=== PATIENT | female | born 2000 | race African-American/Black ===

== ENCOUNTER 2022-04-04 12:30 | Emergency (ER) | payer OTHER, SELFPAY ==
[2022-04-04 13:08] VITALS: BP 108/81; PULSE 71; RESP 20; TEMP 37.2; O2SAT 100
--- NOTE | 2022-04-04 13:42 | ED.GENADULT ---
HPI - General Adult General Chief complaint: Upper Respiratory Infection Stated complaint: sore throat, drainage History of Present Illness HPI narrative: 21 y/o female. PMHx None reported. Presents to [facility] today with acute complaints of sore throat, worsening in the past 24 hours. Client tells me she has seen redness and patches in her posterior throat, and it has hurt to swallow. No fevers. No dysphagia or involuntary drooling. No dyspnea, wheezing, or stridor. She notes an extensive history of Streptococcal throat, and her s/s feel similar. Client had home Covid test that was negative immediately [facility]. No known ill contacts. No additional acute c/o upon PE. Related Data Home Medications Medication Instructions Recorded Confirmed norethindrone 1 mg-ethin. 1 cap PO DAILY 04/04/22 04/04/22 estradiol 20 mcg (24)-iron 75 mg (4) capsule (Gemmily) Allergies Allergy/AdvReac Type Severity Reaction Status Date / Time No Known Allergies Allergy Verified 04/04/22 13:23 Review of Systems Review of Systems: CONSTITUTIONAL: Denies fever, chills, sweats. EYES: Denies visual changes, redness, discharge. ENT: Denies rhinorrhea, congestion, otalgia. + Sore throat. CARDIOVASCULAR: Denies chest pain, palpitations, edema. RESPIRATORY: Denies dyspnea, wheezing, cough GASTROINTESTINAL: Denies abdominal pain, nausea, vomiting, diarrhea. GENITOURINARY: Denies dysuria, hematuria, abnormal discharge SKIN: Denies rash or itching. MUSCULOSKELETAL: Denies acute back pain, joint pain, or myalgia. NEUROLOGIC: Denies numbness, or focal weakness. PSYCHIATRIC: Denies anxiety or depression. Exam Narrative: GENERAL: This is a well-nourished, well-developed adult, in no apparent distress. HEAD: normocephalic. EYES: PERRL. EARS: External ears normal, auditory canals clear and without drainage, TMs normal. NOSE: External nose normal. Positive Rhinorrhea, no obstruction, nares patent. +PND. THROAT: Mucous membranes moist, posterior pharynx is erythematous, with mild exudative changes. No airway swelling. NECK: Neck supple, non-tender without lymphadenopathy, masses or thyromegaly. CARDIOVASCULAR: Regular rate and rhythm without murmurs, gallops, or rubs. RESPIRATORY: Clear to auscultation. Breath sounds equal bilaterally. No wheezes, rales, or rhonchi. No stridor. GASTROINTESTINAL: Abdomen soft, non-tender, nondistended. SKIN: warm, intact with no suspicious lesions or rash NEURO: Alert, active, and age appropriate. Course Course Level of Care: Express Care Visit Vital Signs Vital signs: Vital Signs Temperature 37.2 C 04/04/22 13:08 Pulse Rate 71 04/04/22 13:08 Respiratory Rate 20 04/04/22 13:08 Blood Pressure 108/81 04/04/22 13:08 Pulse Oximetry 100 04/04/22 13:08 Oxygen Delivery Room Air 04/04/22 13:08 Temperature 37.2 C 04/04/22 13:08 Pulse Rate 71 04/04/22 13:08 Respiratory Rate 20 04/04/22 13:08 Blood Pressure 108/81 04/04/22 13:08 Pulse Oximetry 100 04/04/22 13:08 Oxygen Delivery Room Air 04/04/22 13:08 Medical Decision Making MDM Narrative Medical decision making narrative: -No hypoxemia, no respiratory distress. -Rapid Strep is negative. However, based on PE findings and recurrent streptococcal issues reported, will Tx w/appropriate ATB regimen while awaiting additional Cx analysis. Early disease process may sometimes yield false negative rapid, plan to cover w/ATB as to avoid secondary complication pending Cx. -Client may DC ATB regimen if Cx analysis is indeed negative. -Resume additional OTC remedies prn for other symptomatic reliefs. -PCP F/U 1 WK. -ER W/Emergent health status changes. Pt agrees. Differential Diagnosis Differential Diagnosis: Differential Diagnosis: Consideration of the following conditions may be warranted for the presenting problem, they are not final diagnoses: upper respiratory infection, otitis media, sinusitis, RSV vir
== END 2022-04-04 13:44 | disposition home or self-care (01) ==
PROVIDERS: Emergency Provider Nurse Practitioner Adult Health
DX: J02.9 Acute pharyngitis, unspecified (principal)
CPT/HCPCS: 87081; 87880; 99213; G0463